=== PATIENT | female | born 1975 | race Two or more races ===

== ENCOUNTER → 2017-04-21 | Emergency (ER) | payer OTHER ==
[~2017-04-21] VITALS: Ht 160 cm; Wt 85.3 kg
[~2017-04-21] MED LIST: KETO10TA2 PO; ORPHENADRINE C100 MG PO; VISTARIL25 MG PO
== END | disposition home or self-care (01) ==
LOC: ER 20:21
DX: M54.89 Other dorsalgia (principal); R07.89 Other chest pain

== ENCOUNTER 2020-03-15 12:21 | Emergency (ER) | payer OTHER ==
[~2020-03-15] VITALS: Ht 160 cm; Wt 86.2 kg
[2020-03-15] MEDS ORDERED: TOPROL XL50 M1 (12:41)
== END 2020-03-16 01:23 | disposition home or self-care (01) ==
LOC: ER 12:21
DX: K57.90 Diverticulosis of intestine, part unspecified, without perforation or abscess without bleeding (principal); R10.2 Pelvic and perineal pain; R10.32 Left lower quadrant pain

== ENCOUNTER 2020-03-30 09:05 | Outpatient (CLI) | payer OTHER ==
[~2020-03-30 09:05] MED LIST changes: +TOPROL XL50 M1
== END 2020-03-30 09:19 | disposition home or self-care (01) ==
LOC: MRI 09:05
PROVIDERS: ATTEND Obstetrics & Gynecology
DX: N84.0 Polyp of corpus uteri (principal); R10.84 Generalized abdominal pain
CPT/HCPCS: 72197

== ENCOUNTER → 2020-06-14 | Outpatient (CLI) | payer OTHER ==
[~2020-06-14] MED LIST changes: +NABUMETONE750 MG PO; +OXYC1TAB9 PO; +TOPROL XL50 M1 PO
== END | disposition home or self-care (01) ==
LOC: RAD 09:43
PROVIDERS: ATTEND Obstetrics & Gynecology
DX: R10.84 Generalized abdominal pain (principal); R07.89 Other chest pain

== ENCOUNTER → 2020-06-20 | Outpatient (CLI) | payer OTHER | END | disposition home or self-care (01) | LOC: PPH VACUNA | DX: Z23 Encounter for immunization (principal) ==

== ENCOUNTER 2020-06-28 08:45 | Inpatient (IN) | payer OTHER ==
[~2020-06-28] VITALS: Ht 160 cm; Wt 88.5 kg
[~2020-06-28 08:45] MED LIST changes: -NABUMETONE750 MG PO; -OXYC1TAB9 PO; -TOPROL XL50 M1 PO
[2020-07-03] MEDS ORDERED: TOPROL XL50 M1 PO (12:26)
[2020-07-03] MEDS ORDERED: NABUMETONE750 MG PO (12:26)
[2020-07-03] MEDS ORDERED: OXYC1TAB9 PO (12:26)
== END 2020-07-03 14:34 | disposition home or self-care (01) | DRG 743 ==
LOC: O/R 06-30 05:49 → OB/GYN 06-30 05:49
PROVIDERS: ADMIT Obstetrics & Gynecology; ATTEND Obstetrics & Gynecology
PROC: 0UT00ZZ Resection of Right Ovary, Open Approach (ICD-10-PCS; 2020-06-30)
PROC: 0UT50ZZ Resection of Right Fallopian Tube, Open Approach (ICD-10-PCS; 2020-06-30)
PROC: 0UB60ZZ Excision of Left Fallopian Tube, Open Approach (ICD-10-PCS; 2020-06-30)
PROC: 0UT90ZZ Resection of Uterus, Open Approach (ICD-10-PCS; principal; 2020-06-30 07:00)
DX: D25.2 Subserosal leiomyoma of uterus (principal); N72 Inflammatory disease of cervix uteri; N83.11 Corpus luteum cyst of right ovary; N83.8 Other noninflammatory disorders of ovary, fallopian tube and broad ligament; N93.9 Abnormal uterine and vaginal bleeding, unspecified